=== PATIENT | male | born 1950 | race Caucasian/White ===

== ENCOUNTER 2017-10-19 06:00 | Emergency (ER) | payer BC ==
[~2017-10-19] VITALS: Ht 170.1 cm; Wt 77.1 kg
[~2017-10-19 06:00] MED LIST: FLOMAX0.4 MG PO
[2017-10-19 06:25] LABS: BASO % 0.5 % (0.0-1.0); EOS # 0.1 10*3/uL (0.0-0.4); EOS % 1.5 % (1.0-4.0); HEMATOCRIT 47.2 % (42.0-52.0); HEMOGLOBIN 15.4 g/dl (14.0-18.0); LYMPH # 1.3 10*3/uL (1.3-4.4); LYMPH % 20.2 % (27.0-41.0); MEAN CELL VOLUME 90.6 fl (80.0-94.0); MEAN CORPUSCULAR HGB 29.6 pg (27.0-31.0); MEAN CORPUSCULAR HGB CONC 32.6 g/dl (33.0-37.0); MONO # 0.3 10*3/uL (0.1-1.0); MONO % 4.3 % (3.0-9.0); NEUT # 4.8 10*3/uL (2.3-7.9); NEUT % 73.2 % (47.0-73.0); PLATELET COUNT AUTOMATED 172 10*3/uL (130-400); RED BLOOD COUNT 5.21 10*6/uL (4.50-5.90); RED CELL DISTRI WIDTH 13.4 % (0-14.5); WHITE BLOOD COUNT 6.5 10*3/uL (4.8-10.8)
[2017-10-19 06:40] LABS: BUN 28 mg/dl (7-24); CHLORIDE 109 mmol/L (98-107); CREATININE 1.03 mg/dL (0.70-1.30); POTASSIUM 4.2 mmol/L (3.5-5.1); SODIUM 139 mmol/L (136-145)
[2017-10-19] MEDS ORDERED: OMNICEF300 MG PO (06:52)
[2017-10-19] MEDS ORDERED: FLOMAX0.4 MG PO (06:52)
[2017-10-19 06:58] LABS: BILIRUBIN NEGATIVE (NEGATIVE); BLOOD 1+ (NEGATIVE); CLARITY CLEAR (CLEAR); COLOR YELLOW (YELLOW); GLUCOSE NEGATIVE (NEGATIVE); KETONE NEGATIVE (NEGATIVE); LEUKO ESTERASE NEGATIVE (NEGATIVE); NITRITE NEGATIVE (NEGATIVE); UROBILINOGEN 0.2 E.U./dl (0.2-1.0)
[2017-10-19 07:01] LABS: EPITHELIAL CELLS 0-2; RBC 16-20 rbc/hpf (0-2)
== END 2017-10-19 07:05 | disposition home or self-care (01) ==
LOC: ED 06:00
PROVIDERS: Emergency Medicine
DX: R33.9 Retention of urine, unspecified (principal); Z79.899 Other long term (current) drug therapy; Z98.890 Other specified postprocedural states

== ENCOUNTER 2019-11-15 01:57 | Emergency (ER) | payer BC ==
[~2019-11-15] VITALS: Wt 77.1 kg
[~2019-11-15 01:57] MED LIST changes: +OMNICEF300 MG PO
[2019-11-15 02:30] LABS: CLARITY CLEAR (CLEAR); COLOR STRAW (YELLOW)
[2019-11-15 02:33] LABS: BILIRUBIN NEGATIVE (NEGATIVE); BLOOD 1+ (NEGATIVE); GLUCOSE NEGATIVE (NEGATIVE); KETONE NEGATIVE (NEGATIVE); LEUKO ESTERASE NEGATIVE (NEGATIVE); NITRITE NEGATIVE (NEGATIVE); PH 6.5 (5.0-9.0); SPECIFIC GRAVITY 1.025 (1.005-1.030); UROBILINOGEN 0.2 E.U./dl (0.2-1.0)
[2019-11-15 02:38] LABS: BACTERIA TRACE; MUCOUS TRACE; WBC 0-2 wbc/hpf (0-5)
== END 2019-11-15 02:59 | disposition home or self-care (01) ==
LOC: ED 01:57
PROVIDERS: Emergency Medicine Emergency Medical Services
DX: R33.9 Retention of urine, unspecified (principal); N40.0 Benign prostatic hyperplasia without lower urinary tract symptoms; F17.200 Nicotine dependence, unspecified, uncomplicated; Z79.899 Other long term (current) drug therapy

== ENCOUNTER 2019-12-26 04:00 | Emergency (ER) | payer BC ==
[~2019-12-26] VITALS: Ht 170.1 cm; Wt 77.1 kg
[2019-12-26 04:30] LABS: BILIRUBIN NEGATIVE (NEGATIVE); BLOOD 3+ (NEGATIVE); CLARITY CLEAR (CLEAR); COLOR YELLOW (YELLOW); GLUCOSE NEGATIVE (NEGATIVE); KETONE NEGATIVE (NEGATIVE); LEUKO ESTERASE NEGATIVE (NEGATIVE); NITRITE NEGATIVE (NEGATIVE); PH 6.5 (5.0-9.0); UROBILINOGEN 0.2 E.U./dl (0.2-1.0)
[2019-12-26 04:39] LABS: RBC 31-40 rbc/hpf (0-2)
== END 2019-12-26 04:40 | disposition home or self-care (01) ==
LOC: ED 04:00
PROVIDERS: Emergency Medicine
DX: R33.9 Retention of urine, unspecified (principal); N40.0 Benign prostatic hyperplasia without lower urinary tract symptoms; N32.0 Bladder-neck obstruction

== ENCOUNTER 2020-01-02 00:18 | Emergency (ER) | payer BC ==
[~2020-01-02] VITALS: Ht 170.1 cm; Wt 77.1 kg
[2020-01-02 01:33] LABS: BILIRUBIN NEGATIVE; BLOOD 3+ (NEGATIVE); CLARITY CLEAR (CLEAR); COLOR ORANGE (YELLOW); GLUCOSE NEGATIVE; KETONE NEGATIVE; PH 7.5 (4.5-8.0); SPECIFIC GRAVITY 1.015 (1.001-1.030)
[2020-01-02 01:34] LABS: LEUKO ESTERASE TRACE (NEGATIVE); NITRITE NEGATIVE (NEGATIVE)
[2020-01-02 01:35] LABS: RBC TNTC rbc/hpf (0-2)
== END 2020-01-02 02:02 | disposition home or self-care (01) ==
LOC: ED 00:18
PROVIDERS: Emergency Medicine
DX: R33.9 Retention of urine, unspecified (principal); R31.9 Hematuria, unspecified; N40.0 Benign prostatic hyperplasia without lower urinary tract symptoms

== ENCOUNTER 2020-07-16 17:29 | Emergency (ER) | payer BC ==
[~2020-07-16] VITALS: Ht 170.1 cm; Wt 77.1 kg
== END 2020-07-16 18:40 | disposition home or self-care (01) ==
LOC: ED 17:29
DX: R33.9 Retention of urine, unspecified (principal); N40.0 Benign prostatic hyperplasia without lower urinary tract symptoms; Z90.89 Acquired absence of other organs; Z98.890 Other specified postprocedural states; Z79.899 Other long term (current) drug therapy

== ENCOUNTER 2020-08-25 22:22 | Emergency (ER) | payer BC ==
[~2020-08-25] VITALS: Ht 170.1 cm; Wt 77.1 kg
[2020-08-25 23:32] LABS: BILIRUBIN Negative (Negative); BLOOD Negative (Negative); CLARITY Clear (Clear); COLOR Yellow (Yellow); GLUCOSE Negative (Negative); KETONE Negative (Negative); LEUKO ESTERASE Negative (Negative); NITRITE Negative (Negative); SPECIFIC GRAVITY 1.015 (1.001-1.030); UROBILINOGEN 0.2 E.U./dl (0.0-1.0)
[2020-08-25 23:48] LABS: RBC 0-2 rbc/hpf (0-2); WBC 0-2 wbc/hpf (0-5)
== END 2020-08-26 00:34 | disposition home or self-care (01) ==
LOC: ED 22:22
PROVIDERS: Hospitalist
DX: R33.9 Retention of urine, unspecified (principal); Z98.890 Other specified postprocedural states

== ENCOUNTER 2020-09-04 00:56 | Emergency (ER) | payer BC | END 2020-09-04 02:15 | disposition home or self-care (01) | LOC: ED 00:56 | DX: R33.9 Retention of urine, unspecified (principal); F17.200 Nicotine dependence, unspecified, uncomplicated; Z79.899 Other long term (current) drug therapy; Z98.890 Other specified postprocedural states ==

== ENCOUNTER 2021-01-14 02:07 | Emergency (ER) | payer MEDICARE ==
[~2021-01-14] VITALS: Ht 170.1 cm; Wt 72.6 kg
== END 2021-01-14 03:08 | disposition home or self-care (01) ==
LOC: ED 02:07
DX: R33.9 Retention of urine, unspecified (principal); N40.0 Benign prostatic hyperplasia without lower urinary tract symptoms; F17.200 Nicotine dependence, unspecified, uncomplicated; Z90.89 Acquired absence of other organs; Z98.890 Other specified postprocedural states; Z79.899 Other long term (current) drug therapy

== ENCOUNTER 2021-05-14 15:06 | Emergency (ER) | payer MEDICARE ==
[2021-05-14 15:36] LABS: BILIRUBIN Negative (Negative); BLOOD 3+ (Negative); CLARITY Clear (Clear); COLOR Orange (Yellow); GLUCOSE 1+ (Negative); KETONE Negative (Negative); LEUKO ESTERASE Negative (Negative); NITRITE Negative (Negative); PH 6.5 (4.5-8.0); UROBILINOGEN 0.2 E.U./dl (0.0-1.0)
[2021-05-14 15:59] LABS: RBC TNTC rbc/hpf (0-2)
== END 2021-05-14 15:34 | disposition home or self-care (01) ==
LOC: ED 15:06
PROVIDERS: Emergency Medicine
DX: R33.9 Retention of urine, unspecified (principal); N40.0 Benign prostatic hyperplasia without lower urinary tract symptoms; Z79.899 Other long term (current) drug therapy

== ENCOUNTER 2021-09-24 05:20 | Emergency (ER) | payer MEDICARE ==
[~2021-09-24] VITALS: Ht 170.1 cm; Wt 74.8 kg
[2021-09-24 06:06] LABS: BILIRUBIN Negative (Negative); BLOOD 3+ (Negative); CLARITY Turbid (Clear); COLOR Red (Yellow); GLUCOSE Negative (Negative); KETONE Negative (Negative); NITRITE Negative (Negative); PH 6.5 (4.5-8.0); SPECIFIC GRAVITY 1.015 (1.001-1.030)
[2021-09-24 06:07] LABS: LEUKO ESTERASE Negative (Negative)
[2021-09-24 06:17] LABS: RBC TNTC rbc/hpf (0-2)
== END 2021-09-24 06:46 | disposition left against medical advice (07) ==
LOC: ED 05:20
PROVIDERS: Emergency Medicine
DX: R33.9 Retention of urine, unspecified (principal); R31.9 Hematuria, unspecified; Z90.89 Acquired absence of other organs

== ENCOUNTER 2021-09-24 16:45 | Emergency (ER) | payer MEDICARE | END 2021-09-24 17:56 | disposition home or self-care (01) | LOC: ED 16:45 | DX: R33.9 Retention of urine, unspecified (principal); R31.9 Hematuria, unspecified ==

== ENCOUNTER 2021-09-26 04:12 | Emergency (ER) | payer MEDICARE ==
[~2021-09-26] VITALS: Ht 170.1 cm; Wt 74.8 kg
== END 2021-09-26 05:08 | disposition home or self-care (01) ==
LOC: ED 04:12
DX: T83.038A Leakage of other urinary catheter, initial encounter (principal); J30.9 Allergic rhinitis, unspecified; Y92.89 Other specified places as the place of occurrence of the external cause

== ENCOUNTER 2022-05-10 00:30 | Emergency (ER) | payer MEDICARE ==
[~2022-05-10] VITALS: Ht 170.1 cm; Wt 72.6 kg
[2022-05-10 01:26] LABS: BILIRUBIN Negative (Negative); BLOOD Negative (Negative); CLARITY Clear (Clear); COLOR Yellow (Yellow); GLUCOSE Negative (Negative); KETONE Negative (Negative); LEUKO ESTERASE Negative (Negative); NITRITE Negative (Negative); PH 7.5 (4.5-8.0)
[2022-05-10 01:42] LABS: RBC 0-2 rbc/hpf (0-2); WBC 0-2 wbc/hpf (0-5)
== END 2022-05-10 01:49 | disposition home or self-care (01) ==
LOC: ED 00:30
PROVIDERS: Internal Medicine
DX: R33.9 Retention of urine, unspecified (principal); Z90.89 Acquired absence of other organs; Z98.890 Other specified postprocedural states

== ENCOUNTER 2022-06-12 23:35 | Emergency (ER) | payer MEDICARE ==
[~2022-06-12] VITALS: Ht 170.1 cm; Wt 72.6 kg
[2022-06-13 00:21] LABS: BILIRUBIN Negative (Negative); BLOOD Negative (Negative); CLARITY Clear (Clear); COLOR Yellow (Yellow); GLUCOSE Negative (Negative); KETONE Negative (Negative); LEUKO ESTERASE 2+ (Negative); NITRITE Positive (Negative)
[2022-06-13 00:48] LABS: BACTERIA 2+; WBC 31-40 wbc/hpf (0-5)
== END 2022-06-13 00:15 | disposition home or self-care (01) ==
LOC: ED 23:35
PROVIDERS: Internal Medicine
DX: R33.9 Retention of urine, unspecified (principal); Z90.89 Acquired absence of other organs; Z98.890 Other specified postprocedural states

== ENCOUNTER 2022-12-17 20:34 | Inpatient (IN) | payer MEDICARE ==
[~2022-12-17] VITALS: Ht 170.2 cm; Wt 67.6 kg
[2022-12-17 20:56] VITALS: BP 154/65
[2022-12-17 21:35] LABS: BASO % 0.5 % (0.0-1.0); EOS # 0.2 10*3/uL (0.0-0.4); EOS % 3.1 % (1.0-4.0); LYMPH # 1.6 10*3/uL (1.3-4.4); LYMPH % 21.2 % (27.0-41.0); MEAN CELL VOLUME 89.1 fl (80.0-94.0); MEAN CORPUSCULAR HGB 29.4 pg (27.0-31.0); MEAN PLATELET VOLUME 9.9 fl (9.6-12.3); MONO # 0.3 10*3/uL (0.1-1.0); NEUT # 5.3 10*3/uL (2.3-7.9); NEUT % 70.9 % (47.0-73.0); PLATELET COUNT AUTOMATED 160 10*3/uL (130-400); RED BLOOD COUNT 4.94 10*6/uL (4.50-5.90); RED CELL DISTRI WIDTH 13.2 % (0-14.5); WHITE BLOOD COUNT 7.5 10*3/uL (4.8-10.8)
[2022-12-17 22:10] LABS: ALKALINE PHOSPHATASE 92 U/L (46-116); BUN 13 mg/dl (9-23); CHLORIDE 107 mmol/L (98-107); LIPASE 34 U/L (12-53); POTASSIUM 3.5 mmol/L (3.4-5.1); SGPT/ALT 14 U/L (10-49); TOTAL PROTEIN 6.6 gm/dL (6.0-8.0)
[2022-12-17 23:34] LABS: BILIRUBIN Negative (Negative); BLOOD Negative (Negative); CLARITY Clear (Clear); COLOR Yellow (Yellow); GLUCOSE Negative (Negative); KETONE 1+ (Negative); LEUKO ESTERASE Negative (Negative); NITRITE Negative (Negative); SPECIFIC GRAVITY >= 1.030 (1.001-1.030)
[2022-12-17 23:52] LABS: MUCOUS 2+
[2022-12-18 02:40] VITALS: BP 141/66
[2022-12-18 02:50] VITALS: BP 156/61
[2022-12-18] MEDS ORDERED: FLOMAX0.4 MG PO (03:26)
[2022-12-18 07:01] LABS: BUN 11 mg/dl (9-23); CHLORIDE 110 mmol/L (98-107); POTASSIUM 3.7 mmol/L (3.4-5.1)
[2022-12-18 08:00] VITALS: BP 150/67
[2022-12-18 12:00] VITALS: BP 174/69
[2022-12-18 16:00] VITALS: BP 160/74; BP 182/80
[2022-12-18 20:00] VITALS: BP 139/51; BP 151/60
[2022-12-19] VITALS: BP 150/58
[2022-12-19 06:08] LABS: BASO % 0.3 % (0.0-1.0); EOS # 0.2 10*3/uL (0.0-0.4); EOS % 2.5 % (1.0-4.0); HEMATOCRIT 42.5 % (42.0-52.0); LYMPH # 1.7 10*3/uL (1.3-4.4); LYMPH % 27.3 % (27.0-41.0); MEAN CELL VOLUME 87.4 fl (80.0-94.0); MEAN CORPUSCULAR HGB CONC 33.2 g/dl (33.0-37.0); MONO # 0.4 10*3/uL (0.1-1.0); MONO % 5.7 % (3.0-9.0); NEUT % 63.9 % (47.0-73.0); PLATELET COUNT AUTOMATED 163 10*3/uL (130-400); RED BLOOD COUNT 4.86 10*6/uL (4.50-5.90); RED CELL DISTRI WIDTH 12.9 % (0-14.5); WHITE BLOOD COUNT 6.3 10*3/uL (4.8-10.8)
[2022-12-19 06:29] LABS: BUN 9 mg/dl (9-23); CHLORIDE 108 mmol/L (98-107); POTASSIUM 3.5 mmol/L (3.4-5.1)
[2022-12-19 08:00] VITALS: BP 109/53
[2022-12-19 12:00] VITALS: BP 110/50
[2022-12-19 16:00] VITALS: BP 129/54
[2022-12-19] MEDS ORDERED: METRONIDAZOLE500 M1 PO (17:12)
[2022-12-19] MEDS ORDERED: LISINOPRIL2.5 MG PO (17:12)
[2022-12-19] MEDS ORDERED: CIPRO500 MG PO (17:12)
== END 2022-12-19 17:45 | disposition home or self-care (01) | DRG 392 ==
LOC: ED 20:34 → EDHOLD 23:50 → 4E 23:50 → EDHOLD 12-18 00:18 → 4E 12-18 02:01
PROVIDERS: Family Medicine; Nurse Practitioner Family; Student in an Organized Health Care Education/Training Program; ADMIT Internal Medicine; ATTEND Internal Medicine
DX: K52.9 Noninfective gastroenteritis and colitis, unspecified (principal); N40.0 Benign prostatic hyperplasia without lower urinary tract symptoms; E86.0 Dehydration; K82.8 Other specified diseases of gallbladder; R80.9 Proteinuria, unspecified; R73.9 Hyperglycemia, unspecified; R82.4 Acetonuria; J44.9 Chronic obstructive pulmonary disease, unspecified; F17.210 Nicotine dependence, cigarettes, uncomplicated; K81.9 Cholecystitis, unspecified; Z80.1 Family history of malignant neoplasm of trachea, bronchus and lung; Z81.8 Family history of other mental and behavioral disorders

== ENCOUNTER 2023-05-12 13:45 | Emergency (ER) | payer MEDICARE ==
[~2023-05-12] VITALS: Ht 170.1 cm; Wt 68.0 kg
[~2023-05-12 13:45] MED LIST changes: +CIPRO500 MG PO; +LISINOPRIL2.5 MG PO; +METRONIDAZOLE500 M1 PO
[2023-05-12 14:32] LABS: BILIRUBIN Negative (Negative); BLOOD Trace-Intact (Negative); CLARITY Clear (Clear); COLOR Yellow (Yellow); GLUCOSE Negative (Negative); KETONE 1+ (Negative); LEUKO ESTERASE Negative (Negative); NITRITE Negative (Negative); PH 6.5 (4.5-8.0); SPECIFIC GRAVITY 1.025 (1.001-1.030); UROBILINOGEN 0.2 E.U./dl (0.0-1.0)
[2023-05-12 14:42] LABS: BACTERIA TRACE; WBC 0-2 wbc/hpf (0-5)
[2023-05-12 14:43] LABS: MUCOUS TRACE
== END 2023-05-12 14:50 | disposition home or self-care (01) ==
LOC: ED 13:45
PROVIDERS: Physician Assistant Medical
DX: R33.9 Retention of urine, unspecified (principal); Z90.89 Acquired absence of other organs; Z98.890 Other specified postprocedural states; F17.200 Nicotine dependence, unspecified, uncomplicated

== ENCOUNTER 2023-08-17 14:35 | Emergency (ER) | payer MEDICARE ==
[~2023-08-17] VITALS: Ht 170.1 cm; Wt 65.8 kg
[2023-08-17 14:59] LABS: BASO % 0.4 % (0.0-1.0); EOS # 0.2 10*3/uL (0.0-0.4); EOS % 3.8 % (1.0-4.0); HEMATOCRIT 46.8 % (42.0-52.0); LYMPH # 2.2 10*3/uL (1.3-4.4); LYMPH % 40.7 % (27.0-41.0); MEAN CELL VOLUME 91.4 fl (80.0-94.0); MEAN CORPUSCULAR HGB 28.9 pg (27.0-31.0); MEAN CORPUSCULAR HGB CONC 31.6 g/dl (33.0-37.0); MEAN PLATELET VOLUME 10.3 fl (9.6-12.3); MONO # 0.3 10*3/uL (0.1-1.0); MONO % 5.3 % (3.0-9.0); NEUT # 2.6 10*3/uL (2.3-7.9); NEUT % 49.6 % (47.0-73.0); PLATELET COUNT AUTOMATED 199 10*3/uL (130-400); RED BLOOD COUNT 5.12 10*6/uL (4.50-5.90); RED CELL DISTRI WIDTH 13.2 % (0-14.5); WHITE BLOOD COUNT 5.3 10*3/uL (4.8-10.8)
[2023-08-17 15:21] LABS: ALKALINE PHOSPHATASE 105 U/L (46-116); BUN 14 mg/dl (9-23); CHLORIDE 109 mmol/L (98-107); POTASSIUM 3.4 mmol/L (3.4-5.1); SGPT/ALT 18 U/L (5-49)
[2023-08-17 15:24] LABS: BILIRUBIN Negative (Negative); BLOOD Negative (Negative); CLARITY Clear (Clear); COLOR Yellow (Yellow); GLUCOSE Negative (Negative); KETONE Negative (Negative); LEUKO ESTERASE Negative (Negative); NITRITE Positive (Negative); PH 7.5 (4.5-8.0); UROBILINOGEN 0.2 E.U./dl (0.0-1.0)
[2023-08-17 15:43] LABS: BACTERIA 4+
[2023-08-17 15:44] LABS: RBC 0-2 rbc/hpf (0-2)
== END 2023-08-17 15:59 | disposition home or self-care (01) ==
LOC: ED 14:35
PROVIDERS: Nurse Practitioner Family
DX: N40.1 Benign prostatic hyperplasia with lower urinary tract symptoms (principal); R33.8 Other retention of urine; Z98.890 Other specified postprocedural states; Z90.89 Acquired absence of other organs; F17.200 Nicotine dependence, unspecified, uncomplicated

== ENCOUNTER 2023-08-26 06:25 | Emergency (ER) | payer MEDICARE ==
[~2023-08-26] VITALS: Ht 170.1 cm; Wt 65.8 kg
[2023-08-26 07:03] LABS: BILIRUBIN Negative (Negative); BLOOD Trace-Intact (Negative); CLARITY Clear (Clear); COLOR Yellow (Yellow); GLUCOSE Negative (Negative); KETONE Negative (Negative); LEUKO ESTERASE Trace (Negative); NITRITE Positive (Negative); UROBILINOGEN 0.2 E.U./dl (0.0-1.0)
[2023-08-26 08:08] LABS: BACTERIA 4+
== END 2023-08-26 07:00 | disposition home or self-care (01) ==
LOC: ED 06:25
PROVIDERS: Internal Medicine
DX: R33.9 Retention of urine, unspecified (principal); Z90.89 Acquired absence of other organs; Z98.890 Other specified postprocedural states; F17.200 Nicotine dependence, unspecified, uncomplicated

== ENCOUNTER 2023-09-22 22:23 | Emergency (ER) | payer MEDICARE ==
[~2023-09-22] VITALS: Ht 175.2 cm; Wt 68.0 kg
[2023-09-22 23:05] LABS: BILIRUBIN Negative (Negative); BLOOD Negative (Negative); CLARITY Clear (Clear); COLOR Yellow (Yellow); GLUCOSE Negative (Negative); KETONE Negative (Negative); LEUKO ESTERASE Trace (Negative); NITRITE Negative (Negative); PH 6.5 (4.5-8.0); UROBILINOGEN 0.2 E.U./dl (0.0-1.0)
[2023-09-22 23:16] LABS: BACTERIA 1+; RBC 0-2 rbc/hpf (0-2)
== END 2023-09-22 23:00 | disposition home or self-care (01) ==
LOC: ED 22:23
PROVIDERS: Physician Assistant Medical
DX: R33.9 Retention of urine, unspecified (principal); F17.200 Nicotine dependence, unspecified, uncomplicated; Z90.89 Acquired absence of other organs; Z98.890 Other specified postprocedural states; Z79.899 Other long term (current) drug therapy

== ENCOUNTER 2023-10-12 01:04 | Emergency (ER) | payer MEDICARE ==
[~2023-10-12] VITALS: Wt 63.5 kg
== END 2023-10-12 01:34 | disposition home or self-care (01) ==
LOC: ED 01:04
DX: R33.9 Retention of urine, unspecified (principal); F17.200 Nicotine dependence, unspecified, uncomplicated; Z90.89 Acquired absence of other organs; Z98.890 Other specified postprocedural states; Z91.199 Patient's noncompliance with other medical treatment and regimen due to unspecified reason

== ENCOUNTER 2024-08-01 03:00 | Emergency (ER) | payer MEDICARE ==
[~2024-08-01] VITALS: Ht 170.1 cm; Wt 65.8 kg
[2024-08-01 03:44] LABS: BILIRUBIN Negative (Negative); BLOOD 3+ (Negative); CLARITY Cloudy (Clear); COLOR Yellow (Yellow); GLUCOSE Negative (Negative); KETONE Negative (Negative); LEUKO ESTERASE 3+ (Negative); NITRITE Positive (Negative); UROBILINOGEN 0.2 E.U./dl (0.0-1.0)
[2024-08-01 03:55] LABS: RBC TNTC rbc/hpf (0-2); WBC TNTC wbc/hpf (0-5)
== END 2024-08-01 03:46 | disposition home or self-care (01) ==
LOC: ED 03:00
PROVIDERS: Internal Medicine
DX: R33.9 Retention of urine, unspecified (principal); R10.30 Lower abdominal pain, unspecified; F17.200 Nicotine dependence, unspecified, uncomplicated; Z90.89 Acquired absence of other organs; Z98.890 Other specified postprocedural states

== ENCOUNTER 2024-08-23 00:24 | Emergency (ER) | payer MEDICARE ==
[~2024-08-23] VITALS: Ht 170.1 cm; Wt 63.5 kg
== END 2024-08-23 01:01 | disposition left against medical advice (07) ==
LOC: ED 00:24
DX: R33.9 Retention of urine, unspecified (principal); F17.200 Nicotine dependence, unspecified, uncomplicated; Z98.890 Other specified postprocedural states; Z90.89 Acquired absence of other organs; Z53.29 Procedure and treatment not carried out because of patient's decision for other reasons

== ENCOUNTER 2024-11-28 02:43 | Emergency (ER) | payer MEDICARE ==
[~2024-11-28] VITALS: Ht 170.1 cm; Wt 65.8 kg
[2024-11-28 03:25] LABS: BILIRUBIN Negative (Negative); BLOOD Negative (Negative); CLARITY Clear (Clear); COLOR Yellow (Yellow); KETONE Negative (Negative); LEUKO ESTERASE Negative (Negative); NITRITE Negative (Negative); PH 7.0 (4.5-8.0); SPECIFIC GRAVITY 1.020 (1.001-1.030); UROBILINOGEN 0.2 E.U./dl (0.0-1.0)
== END 2024-11-28 03:48 | disposition home or self-care (01) ==
LOC: ED 02:43
PROVIDERS: Emergency Medicine
DX: R33.9 Retention of urine, unspecified (principal); I10 Essential (primary) hypertension; J44.9 Chronic obstructive pulmonary disease, unspecified; Z90.89 Acquired absence of other organs; Z98.890 Other specified postprocedural states

== ENCOUNTER 2024-12-12 01:34 | Emergency (ER) | payer MEDICARE ==
[~2024-12-12] VITALS: Ht 170.1 cm; Wt 63.5 kg
== END 2024-12-12 02:44 | disposition home or self-care (01) ==
LOC: ED 01:34
DX: R33.9 Retention of urine, unspecified (principal); F17.200 Nicotine dependence, unspecified, uncomplicated; J44.9 Chronic obstructive pulmonary disease, unspecified; I10 Essential (primary) hypertension

== ENCOUNTER 2025-02-06 02:29 | Emergency (ER) | payer MEDICARE ==
[~2025-02-06] VITALS: Ht 170.1 cm; Wt 61.2 kg
[2025-02-06 03:09] LABS: BILIRUBIN Negative (Negative); BLOOD Negative (Negative); CLARITY Clear (Clear); COLOR Yellow (Yellow); KETONE Negative (Negative); LEUKO ESTERASE Negative (Negative); NITRITE Negative (Negative); PH 7.5 (4.5-8.0); SPECIFIC GRAVITY 1.020 (1.001-1.030); UROBILINOGEN 0.2 E.U./dl (0.0-1.0)
[2025-02-06 03:18] LABS: RBC 0-2 rbc/hpf (0-2); WBC 0-2 wbc/hpf (0-5)
== END 2025-02-06 03:50 | disposition home or self-care (01) ==
LOC: ED 02:29
PROVIDERS: Emergency Medicine
DX: R33.9 Retention of urine, unspecified (principal); J44.9 Chronic obstructive pulmonary disease, unspecified; I10 Essential (primary) hypertension; F17.210 Nicotine dependence, cigarettes, uncomplicated; Z98.890 Other specified postprocedural states; Z90.89 Acquired absence of other organs

== ENCOUNTER 2025-03-06 00:29 | Emergency (ER) | payer MEDICARE ==
[~2025-03-06] VITALS: Ht 152.4 cm; Wt 63.5 kg
== END 2025-03-06 01:41 | disposition home or self-care (01) ==
LOC: ED 00:29
DX: R33.9 Retention of urine, unspecified (principal); F17.200 Nicotine dependence, unspecified, uncomplicated; Z90.89 Acquired absence of other organs; Z98.890 Other specified postprocedural states